=== PATIENT | male | born 1990 ===

== ENCOUNTER 2018-09-17 13:29 | Emergency (ER) | payer OTHER ==
[2018-09-17 13:57] VITALS: PULSE 88; TEMP 98
--- NOTE | 2018-09-17 14:20 | ED PDOC ---
Lower Extremity Pain/Injury Time Seen by Provider: 09/17/18 14:15 Chief Complaint (Nursing): Lower Extremity Problem/Injury Chief Complaint (Provider): Bilateral Knee Pain History Per: Patient, Manager Intensive Care Unit (Faroese, #[id number]) History/Exam Limitations: no limitations Onset/Duration Of Symptoms: Days (x1) Current Symptoms Are (Timing): Still Present Additional Complaint(s): 28 year old male presents to the ED for evaluation of bilateral knee pain, right greater than left, after a trash container fell on his right knee yesterday and he slipped on the left one. Since, he reports slight trouble walking with additional right foot pain, but denies weakness, numbness, and other complaints. PMD: none provided Past Medical History Reviewed: Historical Data, Nursing Documentation, Vital Signs Vital Signs: Last Vital Signs Temp 98 F 09/17/18 13:54 Pulse 88 09/17/18 13:54 Resp 18 09/17/18 13:54 BP 129/70 09/17/18 13:54 Pulse Ox 99 09/17/18 13:54 - Medical History PMH: No Chronic Diseases - Surgical History Surgical History: No Surg Hx - Family History Family History: States: Unknown Family Hx - Social History Current smoker - smoking cessation education provided: No Alcohol: None Drugs: Denies - Home Medications Home Medications: Ambulatory Orders Medication Instructions Recorded Diclofenac Potassium 50 mg PO BID #20 tablet 09/17/18 Methylprednisolone [Medrol Dose 4 mg PO ASDIR #21 mg 09/17/18 Pack (21 tabs)] - Allergies Allergies/Adverse Reactions: Allergies Allergy/AdvReac Type Severity Reaction Status Date / Time No Known Allergies Allergy Verified 09/17/18 13:55 Review of Systems ROS Statement: Except As Marked, All Systems Reviewed And Found Negative Musculoskeletal: Positive for: Foot Pain (right), Other (bilateral knee pain, right greater than left) Neurological: Negative for: Weakness, Numbness Physical Exam - Reviewed Nursing Documentation Reviewed: Yes Vital Signs Reviewed: Yes - Physical Exam Appears: Positive for: No Acute Distress Skin: Positive for: Normal Color, Warm Cardiovascular/Chest: Positive for: Regular Rate, Rhythm Respiratory: Positive for: Normal Breath Sounds. Negative for: Respiratory Distress Extremity: Positive for: Tenderness (right medial foot), Other (extension and flexion to 90 degrees in bilateral knees; right knee: (-) effusion, (-) vargus and valgus tests, (+) apley grind with medial and lateral rotation; left knee: (-) effusion, (-) anterior and posterior drawer signs, (-) vargus and valgus signs, (-) apley rotation to medial and lateral aspects) Neurologic/Psych: Positive for: Alert, Oriented (x3). Negative for: Russ r/Sensory Deficits - ECG O2 Sat by Pulse Oximetry: 99 (RA) Pulse Ox Interpretation: Normal Medical Decision Making Medical Decision Making: Time: 1423 Initial Impression: bilateral knee pain, right foot pain Initial Plan: --Bilateral knee XR --Right foot XR --Tylenol 650mg PO --Decadron 10mg INJ --Toradol 30mg IM Discussed with patient using business banking officer that the knee is a sensitive area and he may require outpatient follow up to do additional imaging / treatment. 1552 XR foot FINDINGS: BONES: Bone alignment and mineralization are normal. There is no acute displaced fracture or bone destruction. JOINTS: Normal. SOFT TISSUES: Normal. OTHER FINDINGS: None. IMPRESSION: No acute displaced fracture or dislocation. 1552 XR Knees FINDINGS: BONES: Right Knee: Normal. No fracture. Left Knee: Normal. No fracture. JOINTS: Right Knee: Normal. No osteoarthritis. Left knee: Normal. No osteoarthritis. SOFT TISSUES: Right Knee: Normal. Left Knee: Normal. JOINT EFFUSION: Right Knee: Moderate suprapatellar joint effusion. Left Knee: Moderate suprapatellar joint effusion. OTHER FINDINGS: None. IMPRESSION: No acute displaced fracture or dislocation. Moderate suprapatellar joint effusions. 1625 Discussed results with patient using business banking officer #[id number]. Informed that if his foot pain persists, he should follow up with a shipping services sales representative as it may be plantar fasciitis. Additionally, explained that he will be a given an ortho follow up for further evaluation of his knees. Patient agreeable for follow up. All questions answered at this time. Stable for discharge. Scribe Attestation: Documented by Katey Stafford, acting as a scribe for Oliver Dominguez PA-C. Provider Scribe Attestation: All medical record entries made by the Scribe were at my direction and personally dictated by me. I have reviewed the chart and agree that the record accurately reflects my personal performance of the history, physical exam, medical decision making, and the department course for this patient. I have also personally directed, reviewed, and agree with the discharge instructions and disposition. Lyricmethodist jennie edmundson Ankle Rules - Malleolar zone tenderness? Posterior edge or tip of lateral malleolus: No Posterior edge or tip of medial malleolus: No Inability to bear weight both immediately and in the ED: No - Midfoot zone tenderness? Base of 5th Metatarsal: No Navicular: No Inability to bear weight both immediately and in the ED: No - XRAY INDICATED Is an ankle x-ray indicated based on findings?: No Disposition - Clinical Impression Clinical Impression: Knee pain, Knee injury - Patient ED Disposition Is Patient to be Admitted: No Counseled Patient/Family Regarding: Diagnosis, Need For Followup, Rx Given - Disposition Referrals: [facility] [place] [Outside] Podiatry Clinic [Outside] Eliu Tejada MD [Medical Doctor] - Disposition: Routine/Home Disposition Time: 16:32 Condition: STABLE Prescriptions: Diclofenac Potassium 50 mg PO BID #20 tablet Methylprednisolone [Medrol Dose Pack (21 tabs)] 4 mg PO ASDIR #21 mg Instructions: Knee Pain (DC), Knee Pain Forms: [employer] (Ch[place]), [employer] (Faroese), [facility] ED School/Work Excuse Print Language: CITIZEN OF [place]
--- NOTE | 2018-09-17 15:56 | RAD ---
Date of service: 09/17/2018 PROCEDURE: Right Foot Radiographs. HISTORY: s/p trauma COMPARISON: None. FINDINGS: BONES: Bone alignment and mineralization are normal. There is no acute displaced fracture or bone destruction. JOINTS: Normal. SOFT TISSUES: Normal. OTHER FINDINGS: None. IMPRESSION: No acute displaced fracture or dislocation.
--- NOTE | 2018-09-17 15:56 | RAD ---
Date of service: 09/17/2018 PROCEDURE: Bilateral Knee Radiographs. HISTORY: s/p trauma COMPARISON: None. FINDINGS: BONES: Right Knee: Normal. No fracture. Left Knee: Normal. No fracture. JOINTS: Right Knee: Normal. No osteoarthritis. Left knee: Normal. No osteoarthritis. SOFT TISSUES: Right Knee: Normal. Left Knee: Normal. JOINT EFFUSION: Right Knee: Moderate suprapatellar joint effusion. Left Knee: Moderate suprapatellar joint effusion. OTHER FINDINGS: None. IMPRESSION: No acute displaced fracture or dislocation. Moderate suprapatellar joint effusions.
[2018-09-17 16:50] VITALS: BP 120/88; RESP 20; O2SAT 100
== END 2018-09-17 16:49 | disposition home or self-care (01) ==
LOC: H.ER 13:29
DX: S89.91XA Unspecified injury of right lower leg, initial encounter (principal); W19.XXXA Unspecified fall, initial encounter; Y92.89 Other specified places as the place of occurrence of the external cause
CPT/HCPCS: 73562; 73630; 96372; 99283; J1100; J1885